=== PATIENT | male | born 1980 | race Caucasian/White ===

== ENCOUNTER 2022-12-28 11:28 | Emergency (ER) | payer OTHER, SELFPAY ==
--- NOTE | ~2022-12-28 | XR_ITS ---
AP, oblique, and lateral views of the right great toe CLINICAL HISTORY: Crush injury FINDINGS: Suggestion of small fracture isolated to a medial osteophyte at the proximal portion of the distal phalanx. No other fracture or dislocation seen. Joint spaces are preserved. Soft tissues are unremarkable. IMPRESSION: Suspected nondisplaced fracture at the base of a medial osteophyte at the proximal portion of the dis shirley phalanx. Reviewed, dictated and finalized at location M. IMPRESSION: Suspected nondisplaced fracture at the base of a medial osteophyte at the proxi mal portion of the distal phalanx.
[2022-12-28 11:44] VITALS: PULSE 94; RESP 16; TEMP 36.5; O2SAT 100
[2022-12-28] MEDS: KETOROLAC (*BKC) 60 MG/2 ML VIAL IM (12:57)
--- NOTE | 2022-12-28 13:00 | ED.LOWEXIN ---
HPI - Extremity Injury (Lower) General Chief Complaint: Extremity Injury, Lower Stated Complaint: R foot toe injury Time Seen by Provider: 12/28/22 11:53 Source: patient Mode of arrival: ambulatory Limitations: no limitations History of Present Illness HPI Narrative: Patient is a 42-year-old male who presents to the ED with report of right first toe pain. Patient reports he was at work this morning when a heavy metal shelf fell from about 6 feet up and landed on his right first toe. He complains of pain and swelling to the right first toe. He has been able to ambulate since then, but reports he is mostly walking on his heel. He did sustain a very small abrasion to the dorsal toe. Tetanus up-to-date. Denies any other wounds or injuries. Denies numbness. Patient has not taken anything for pain prior to arrival. Related Data Allergies Allergy/AdvReac Type Severity Reaction Status Date / Time No Known Allergies Allergy Verified 12/28/22 11:47 Review of Systems Review of Systems: CONSTITUTIONAL: Denies fever, chills, or sweats. SKIN: See HPI. MUSCULOSKELETAL: See HPI. NEUROLOGIC: Denies tingling, numbness, or weakness. All systems reviewed & are unremarkable except as noted in HPI and below PMFSH Past Medical History Medical History (Updated 12/28/22 @ 13:30 by Geeta Eid PA-C) No pertinent past medical history Surgical History Surgical History (Updated 12/28/22 @ 13:30 by Geeta Eid PA-C) No pertinent past surgical history Social History Social History (Updated 12/28/22 @ 13:31 by Geeta Eid PA-C) Smoking status: Never smoker Exam Narrative: GENERAL: Well appearing, well-nourished, non-toxic, in no acute distress. HEAD: Normocephalic, atraumatic. NECK: Supple. No adenopathy, no masses. RESPIRATORY: Airway patent, respirations nonlabored. CARDIOVASCULAR: Regular rate and rhythm without murmurs, rubs, or gallops. Pedal pulses 2+ and equal bilaterally. MUSCULOSKELETAL: Mild limited ROM of R 1st toe due to pain. TTP diffusely throughout R 1st toe distal and proximal phalanxes, MTP joint. Sensation intact. Some bruising noted to toe. Pinpoint superficial abrasion over PIP joint of toe. SKIN: Warm, dry, normal color. No rashes. NEURO: A&O X3. Speech clear. Cranial nerves II-XII grossly intact. Steady gait. No ataxic movements. PSYCHIATRIC: Appropriate mood and affect. Normal interaction. Course Vital Signs Vital signs: Vital Signs Temperature 97.7 F 12/28/22 11:44 Pulse Rate 94 12/28/22 11:44 Respiratory Rate 16 12/28/22 11:44 Pulse Oximetry 100 12/28/22 11:44 Oxygen Delivery Room Air 12/28/22 11:44 Temperature 97.7 F 12/28/22 11:44 Pulse Rate 94 12/28/22 11:44 Respiratory Rate 16 12/28/22 11:44 Pulse Oximetry 100 12/28/22 11:44 Oxygen Delivery Room Air 12/28/22 11:44 MDM - Extremity Injury (Lower) MDM Narrative Medical decision making narrative: Patient's injury is consistent with musculoskeletal etiology. No signs of neurologic or vascular compromise on physical examination. Compartments are soft without signs of compartment syndrome. XR showing subtle nondisplaced fracture of medial proximal distal phalanx. This is consistent with patient's exam and injury. Tenderness over this region. Very small superficial abrasion noted to dorsal toe. No deeper wounds or lacerations to suggest open fracture. Tetanus UTD. Patient is felt to be stable for discharge home and further outpatient management and treatment. Will ellie tape toes and provide patient with postop shoe for support. Will provide orthopedic information for follow-up and send naproxen to pharmacy for pain control. Given dose of Toradol in the ED. Patient given return precautions. He agrees with plan. Discharged in stable condition. Medical Records Attestation: I reviewed the patient's medical records. Imaging Data Attestation: I personally reviewed and interpreted
[2022-12-28 13:20] VITALS: BP 132/87; PULSE 75; RESP 12; O2SAT 99
== END 2022-12-28 13:24 | disposition home or self-care (01) ==
PROVIDERS: Emergency Provider Physician Assistant
DX: S92.424A Nondisplaced fracture of distal phalanx of right great toe, initial encounter for closed fracture (principal); W20.8XXA Other cause of strike by thrown, projected or falling object, initial encounter
CPT/HCPCS: 73660; 96372; 99284; J1885